=== PATIENT | male | born 1980 | race Caucasian/White ===

== ENCOUNTER 2024-07-29 11:20 | Emergency (ER) | payer OTHER ==
[~2024-07-29] VITALS: Ht 170.2 cm; Wt 77.3 kg
[2024-07-29 11:37] VITALS: BP 137/71; PULSE 88; RESP 17; TEMP 98.4; O2SAT 98
== END 2024-07-29 11:59 ==
LOC: EMS 11:24
DX: Z02.89 Encounter for other administrative examinations (principal); E11.9 Type 2 diabetes mellitus without complications; I10 Essential (primary) hypertension; Z65.3 Problems related to other legal circumstances; Z79.84 Long term (current) use of oral hypoglycemic drugs
CPT/HCPCS: 99283; Z7502

== ENCOUNTER 2024-07-29 18:05 | Emergency (ER) | payer OTHER ==
[~2024-07-29] VITALS: Ht 170.2 cm; Wt 85.0 kg
[2024-07-29 18:41] LABS: BASOPHILS % (AUTO) 0.3 % (0.0-2.0); EOSINOPHILS % (AUTO) 0.8 % (1.0-6.0); HEMATOCRIT 32.9 % (41-53); HEMOGLOBIN 11.1 g/dL (13.5-17.5); LYMPHOCYTES # (AUTO) 1.5 K/uL (1.0-4.8); LYMPHOCYTES % (AUTO) 24.8 % (22.0-44.0); MEAN CORPUSCULAR HGB CONC 33.7 G/dL (31.0-37.0); MEAN CORPUSCULAR VOLUME 77 fL (80-100); MONOCYTES # (AUTO) 0.4 K/uL (0.1-1.0); MONOCYTES % (AUTO) 7.5 % (2.0-9.0); NEUTROPHILS % (AUTO) 66.6 % (40.0-70.0); PLATELET COUNT (AUTO) 273 K/uL (150-450); RED BLOOD CELL COUNT(AUTO) 4.27 MIL/uL (4.50-5.90); RED CELL DISTRIBUTION WIDTH 13.4 % (11.5-14.5); WHITE BLOOD COUNT (AUTO) 5.9 K/uL (4.5-11.0)
[2024-07-29 18:45] LABS: ANION GAP 2 mmol/L (8-16); CALCIUM, TOTAL 8.9 mg/dL (8.8-10.5); CARBON DIOXIDE 34 mmol/L (22-29); CHLORIDE 103 mmol/L (98-107); CREATININE 0.75 mg/dL (0.60-1.30); GLOMERULAR FILTR. RATE CALC > 60 mL/min (>60); GLUCOSE,RANDOM 223 mg/dL (70-110); POTASSIUM 4.2 mmol/L (3.5-5.1); SODIUM SERUM 139 mmol/L (136-145); UREA NITROGEN, BLOOD 14 mg/dL (7-18)
[2024-07-29 21:46] VITALS: BP 141/85; PULSE 78; RESP 18; TEMP 97.9; O2SAT 100
== END 2024-07-29 21:47 | disposition home or self-care (01) ==
LOC: EMS 18:05
DX: R60.0 Localized edema (principal); E11.9 Type 2 diabetes mellitus without complications
CPT/HCPCS: 80048; 85025; 93970; 99284